=== PATIENT | female | born 1965 | race Caucasian/White ===

== ENCOUNTER → 2020-08-22 | Outpatient (CLI) | payer OTHER ==
[~2020-08-22] MED LIST: AUGMENTIN 500-1 EACH PO; COZAAR 50 MG TA50 MG; NORCO 5-325 TA1 EACH PO; ZOFRAN ODT4 MG PO
[2020-08-22 10:47] LABS: HEMATOCRIT 48.5 % (37.0-47.0); HEMOGLOBIN 16.4 gm/dL (12.0-15.0); MCHC 33.7 g/dL (28.0-37.0); MPV 7.8 fl. (7.2-11.1); RBC 5.27 mil/uL (4.20-5.00); RDW-CV 13.4 % (10.5-14.5); WBC 9.2 thou/uL (4.0-11.0)
[2020-08-22 11:00] LABS: ALBUMIN 4.1 g/dL (3.4-5.0); CREATININE 0.6 mg/dL (0.6-1.3); POTASSIUM 3.9 mmol/L (3.5-5.1); TOTAL BILIRUBIN 1.3 mg/dL (<0.1-1.0)
== END ==
LOC: M.ULTRA 09:59
PROVIDERS: ATTEND Internal Medicine Gastroenterology
DX: R14.0 Abdominal distension (gaseous) (principal)

== ENCOUNTER → 2020-09-05 | Outpatient (CLI) | payer OTHER | LOC: M.CT 08-29 16:05 | PROVIDERS: ATTEND Internal Medicine Gastroenterology | DX: I77.4 Celiac artery compression syndrome (principal); I77.1 Stricture of artery; R14.0 Abdominal distension (gaseous); I70.1 Atherosclerosis of renal artery ==